=== PATIENT | female | born 1995 | race Caucasian/White ===

== ENCOUNTER 2017-07-30 03:48 | Emergency (ER) | payer SELFPAY, OTHER | END 2017-07-30 04:44 | disposition home or self-care (01) | LOC: M ED 03:48 | DX: F10.129 Alcohol abuse with intoxication, unspecified (principal) | CPT/HCPCS: 99283 ==

== ENCOUNTER → 2017-08-29 | Outpatient (CLI) | payer OTHER | LOC: M RAD 07:33 | DX: M79.662 Pain in left lower leg (principal) | CPT/HCPCS: 78315 ==